=== PATIENT | male | born 1975 | race Two or more races ===

== ENCOUNTER 2020-09-19 20:05 | Emergency (ER) | payer SELFPAY ==
[~2020-09-19] VITALS: Ht 162.6 cm; Wt 69.0 kg
[2020-09-19] MEDS ORDERED: LIDOcaine 1% 30ml preserv. free vial IJ ONE (21:20)
[2020-09-19] MEDS ORDERED: TETanus/Pertussis (Acell)/Diphther VAC/PF (Tdap-Adult) 0.5ml syringe IMVAC ONE (21:20)
[2020-09-19 22:07] VITALS: BP 135/88
[2020-09-19] MEDS ORDERED: CEPH-585 PO (22:07)
== END 2020-09-19 22:17 | disposition home or self-care (01) ==
LOC: ER 20:07
DX: S41.112A Laceration without foreign body of left upper arm, initial encounter (principal); Z20.3 Contact with and (suspected) exposure to rabies; Z79.2 Long term (current) use of antibiotics; X58.XXXA Exposure to other specified factors, initial encounter; Y93.89 Activity, other specified; Y92.89 Other specified places as the place of occurrence of the external cause; Y99.8 Other external cause status
CPT/HCPCS: 12002; 90471; 90715; 99284